=== PATIENT | female | born 1950 | race Caucasian/White ===

== ENCOUNTER 2024-04-11 12:25 | Emergency (ER) | payer OTHER ==
--- NOTE | 2024-04-11 13:59 | EDPHYS ---
Physician Documentation [facility] Name: Lisa Howard Age: 73 yrs Sex: Female : 1950 Arrival Date: 04/11/2024 Time: 12:25 Bed 15 Private MD: ED Physician Robert Mckeon HPI: 04/11 13:48 This 73 yrs old Female presents to ER via Ambulatory with complaints of Headache, High bo1 Blood Pressure, tremors, stress. 13:48 The patient describes the headache as throbbing. Onset: The symptoms/episode bo1 began/occurred gradually, 2 day(s) ago. Associated signs and symptoms: Pertinent positives: Hands shaking and being nervous. Symptoms have abated. Severity of symptoms: At its worst the pain was mild. Headache History: Denies prior headaches. Recent stressors from two brothers that have passed. Pt is forgoing the travel to [place] this AM. Cancelled the trip and not attending the .. Historical: - Allergies: 13:21 No Known Allergies; hb - Home Meds: 13:21 None [Active]; hb - PMHx: 13:21 None; hb - PSHx: 13:21 Partial Hysterectomy; Tonsillectomy; hb - Immunization history:: Adult Immunizations up to date. - Infectious Disease History:: Denies. - Social history:: Smoking status: Patient denies any tobacco usage or history of. ROS: 13:53 Constitutional: Negative for fever, chills, and weight loss bo1 13:53 Constitutional: Positive for HENRY and being sad, 13:53 Cardiovascular: Negative for chest pain, palpitations, 13:53 Respiratory: Negative for cough, dyspnea on exertion, shortness of breath, 13:53 Abdomen/GI: Negative for abdominal pain, 13:53 Neuro: Positive for headache, tremor, Negative for altered mental status, speech changes, near syncope, 13:53 Neuro: Positive for 13:53 Psych: Positive for Sadness of the loss of her "brothers.", 13:53 Psych: Positive for Negative for suicidal ideation, 13:53 All other systems are negative, Exam: 13:55 Constitutional: This is a well developed, well nourished patient who is awake, alert, bo1 and in no acute distress. 13:55 Constitutional: The patient appears in no acute distress, alert, awake, comfortable, non-toxic, 13:55 Eyes: Exam is negative for acute changes, 13:55 Neck: Exam negative for acute changes, 13:55 Cardiovascular: Exam negative for acute changes, Rate: normal, Rhythm: regular, 13:55 Respiratory: Exam negative for acute changes, the patient does not display signs of respiratory distress, Respirations: normal, no acute changes, Breath sounds: are clear throughout, 13:55 Abdomen/GI: Palpation: abdomen is soft and non-tender, 13:55 Musculoskeletal/extremity: DVT Exam: no pain, no swelling, no tenderness, 13:55 Neuro: Orientation: is normal, appropriate for stated age, no acute changes, Mentation: is normal, appropriate for stated age, no acute changes, 13:55 Psych: Behavior/mood is pleasant, cooperative, appropriate for age, Affect is calm, Vital Signs: 13:18 BP 161 / 106; Pulse 82; Resp 16; Temp 98.4(O); Pulse Ox 100% on R/A; Weight 70.76 kg; hb Height 5 ft. 1 in. ; Pain 8/10; 14:13 BP 121 / 87; Pulse 85; Resp 17 S; Pulse Ox 100% on R/A; kc6 13:18 Body Mass Index 29.48 (70.76 kg, 154.94 cm) hb 13:18 Pain Scale: Adult hb Estuardo Coma Score: 13:55 Eye Response: spontaneous(4). Motor Response: obeys commands(6). Verbal Response: bo1 oriented(5). Total: 15. MDM: 13:14 Medical Screening Exam initiated bo1 13:56 Differential diagnosis: Episodes of HENRY from stressors of recent history, lack of sleep bo1 etc. ED course: Pt and daughter have agreed to forgo any further care and no testing is agreed upon. They will return as needed. 13:58 Data reviewed: vital signs, BP has improved, on my exam: 148/84. bo1 Administered Medications: No medications were administered Disposition Summary: 04/11/24 13:58 Discharge Ordered Notes: Location: Home bo1 Problem: new bo1 Symptoms: have improved bo1 Condition: Stable bo1 Diagnosis - Acute stress reaction bo1 Followup: bo1 - With: Private Physician - When: Upon discharge from the Emergency Department - Reason: Recheck today's complaints, Continuance of care Discharge Instructions: - Discharge Summary Sheet bo1 - Stress, Adult bo1 Forms: - Medication Reconciliation Form bo1 - Antibiotic Education bo1 - Prescription Opioid Use bo1 - Patient Portal Instructions bo1 - Leadership Thank You Letter bo1 Signatures: Melina Sanches, RN RN Robert Mckeon MD MD bo1
--- NOTE | 2024-04-11 13:59 | ER ---
Nurse's Notes [facility] Name: Lisa Howard Age: 73 yrs Sex: Female : 1950 Arrival Date: 04/11/2024 Time: 12:25 Bed 15 Private MD: Diagnosis: Acute stress reaction Presentation: 04/11 13:18 Chief complaint: Headache and tremors upon waking today. Home BP 180s/80s. Reports two hb recent deaths in the family, was on the way to fly out of state for . Coronavirus screen: At this time, the client does not indicate any symptoms associated with coronavirus-19. Ebola Screen: No symptoms or risks identified at this time. Initial Sepsis Screen: Does the patient meet any 2 criteria? No. Patient's initial sepsis screen is negative. Does the patient have a suspected source of infection? No. Patient's initial sepsis screen is negative. Risk Assessment: Do you want to hurt yourself or someone else? Patient reports no desire to harm self or others. Onset of symptoms was April 11, 2024. 13:18 Method Of Arrival: Ambulatory hb 13:18 Acuity: JUAN JOSE 3 hb Historical: - Allergies: 13:21 No Known Allergies; hb - Home Meds: 13:21 None [Active]; hb - PMHx: 13:21 None; hb - PSHx: 13:21 Partial Hysterectomy; Tonsillectomy; hb - Immunization history:: Adult Immunizations up to date. - Infectious Disease History:: Denies. - Social history:: Smoking status: Patient denies any tobacco usage or history of. Screenin:14 [facility] ED Fall Risk Assessment (Adult) History of falling in the last 3 months, kc6 including since admission No falls in past 3 months (0 pts) Confusion or Disorientation No (0 pts) Intoxicated or Sedated No (0 pts) Impaired Gait No (0 pts) Mobility Assist Device Used No (0 pt) Altered Elimination No (0 pt) Score/Fall Risk Level 0 - 2 = Low Risk Oriented to surroundings, Maintained a safe environment, Educated pt \T\ family on fall prevention, incl call for assistance when getting out of bed. Abuse screen: Denies threats or abuse. Denies injuries from another. Nutritional screening: No deficits noted. Tuberculosis screening: No symptoms or risk factors identified. Assessment: 14:14 General: Appears in no apparent distress. comfortable, well groomed, well developed, kc6 Behavior is calm, cooperative, appropriate for age. Neuro: Level of Consciousness is awake, alert, obeys commands, Oriented to person, place, time, situation, Appropriate for age Reports headache. Cardiovascular: Capillary refill < 3 seconds. Respiratory: Airway is patent Trachea midline Respiratory effort is even, unlabored, Respiratory pattern is regular, symmetrical. GI: No signs and/or symptoms were reported involving the gastrointestinal system. : No signs and/or symptoms were reported regarding the genitourinary system. EENT: No signs and/or symptoms were reported regarding the EENT system. Derm: No signs and/or symptoms reported regarding the dermatologic system. Skin is intact, is healthy with good turgor, Skin is pink, warm \T\ dry. Musculoskeletal: No signs and/or symptoms reported regarding the musculoskeletal system. Circulation, motion, and sensation intact. Capillary refill < 3 seconds, Range of motion: intact in all extremities. Vital Signs: 13:18 BP 161 / 106; Pulse 82; Resp 16; Temp 98.4(O); Pulse Ox 100% on R/A; Weight 70.76 kg; hb Height 5 ft. 1 in. ; Pain 8/10; 14:13 BP 121 / 87; Pulse 85; Resp 17 S; Pulse Ox 100% on R/A; kc6 13:18 Body Mass Index 29.48 (70.76 kg, 154.94 cm) hb 13:18 Pain Scale: Adult hb Estuardo Coma Score: 13:55 Eye Response: spontaneous(4). Motor Response: obeys commands(6). Verbal Response: bo1 oriented(5). Total: 15. ED Course: 12:30 Patient arrived in ED. im 12:30 Robert Mckeon MD is Attending Physician. bo1 13:15 Cris Wilkerson RN is Primary Nurse. kc6 13:21 Triage completed. hb 14:14 Patient has correct armband on for positive identification. Bed in low position. Call kc6 light in reach. Side rails up X 1. Adult w/ patient. Pulse ox on. NIBP on. Door closed. Noise minimized. Lights dimmed. Pillow given. 14:15 No provider procedures requiring assistance completed. Patient did not have IV access kc6 during this emergency room visit. Administered Medications: No medications were administered Medication: 14:15 VIS not applicable for this client. kc6 Outcome: 13:58 Discharge ordered by MD. viveros 14:15 Discharged to home ambulatory, with family, kc6 14:15 Condition: improved 14:15 Discharge instructions given to patient, family, Instructed on discharge instructions, follow up and referral plans. Demonstrated understanding of instructions, follow-up care, 14:15 Patient left the ED. kc6 Signatures: Melina Sanches RN RN hb Campbell, Kaitlyn, RN RN kcBasia Benites Benjamin, MD MD bo1
[2024-04-11 14:54] VITALS: TEMP 98.4; O2SAT 100
[2024-04-11 14:56] VITALS: BP 121/87
== END 2024-04-11 14:15 | disposition home or self-care (01) ==
LOC: ER 12:25
DX: F43.0 Acute stress reaction (principal)
CPT/HCPCS: 99283